=== PATIENT | male | born 2000 | race African-American/Black ===

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

== ENCOUNTER 2021-03-03 21:48 | Emergency (ER) | payer BC ==
[~2021-03-03] VITALS: Ht 175 cm; Wt 64.4 kg
[~2021-03-03 21:48] MED LIST: CETI10TA49 PO; PRED5DRO24 OP
[2021-03-03] MEDS ORDERED: ONDANSETRON 4 MG (ZOFRAN) ORAL DISSOLVE TAB PO STA (21:59)
[2021-03-03] MEDS ORDERED: IBUPROFEN 600 MG (MOTRIN) TAB PO ONE (22:00)
--- NOTE | 2021-03-03 22:05 | ED Cough/URI ---
General Chief Complaint: Cough/Cold/Flu Symptoms Stated Complaint: HEADACHE,BODY ACHES,VOMITTING Source: patient, family Exam Limitations: no limitations History of Present Illness Date Seen by Provider: Mar 03, 2021 Time Seen by Provider: 21:50 Initial Comments 20-year-old male otherwise healthy coming in due to 2 days of body aches, vomiting, cough, and subjective fever. Said he had Covid last semester in school, but has not been vaccinated. Is unsure if he has been around anyone sick. Really started vomiting roughly about an hour ago. No blood or bile in the vomit. Is otherwise denying any other acute complaints. Allergies and Home Medications Allergies Coded Allergies: No Known Drug Allergies (Unverified , 12/31/19) Patient Home Medication List Home Medication List Reviewed: Yes Cetirizine HCl (Zyrtec) 10 Mg Tablet, 10 MG PO DAILY Prescribed by: MEL HAWKINS on 01/04/21 173 Prednisolone Acetate/Pf (Prednisolone Acet 1% Eye Drop) 5 Ml Drops.susp, 5 ML OP BID Prescribed by: MEL HAWKINS on 01/04/21 173 Review of Systems Review of Systems Constitutional: chills, fever EENTM: No blurred vision Respiratory: cough, short of breath Cardiovascular: No chest pain Gastrointestinal: No abdominal pain; nausea, vomiting Genitourinary: no symptoms reported Musculoskeletal: no symptoms reported Skin: no symptoms reported Psychiatric/Neurological: No Symptoms Reported Hematologic/Lymphatic: No Symptoms Reported Immunological/Allergic: no symptoms reported All Other Systems Reviewed Negative Unless Noted: Yes Past Szlrvkr-Sfexkv-Sisyum Hx Patient Social History Tobacco Use?: No Substance use?: No Alcohol Use?: No Immunizations Up To Date First/Initial COVID19 Vaccinat: NA Seasonal Allergies Seasonal Allergies: No Past Medical History Surgeries: No Respiratory: No Cardiac: No Neurological: No Genitourinary: No Gastrointestinal: No Musculoskeletal: No Endocrine: No HEENT: No Cancer: No Psychosocial: No Integumentary: No Blood Disorders: No Physical Exam Vital Signs - First Documented 03/03/21 21:59 Temp 37.3 Pulse 85 Resp 15 B/P (MAP) 153/77 (102) Pulse Ox 98 O2 Delivery Room Air Capillary Refill : Height: '" Weight: lbs. oz. kg; 21.00 BMI Method: General Appearance: WD/WN, no apparent distress Eyes: Bilateral Eye Normal Inspection, Bilateral Eye PERRL HEENT: PERRL/EOMI, normal ENT inspection, pharynx normal Neck: non-tender, full range of motion, supple, normal inspection Respiratory: chest non-tender, lungs clear, normal breath sounds, no respiratory distress, no accessory muscle use Cardiovascular: regular rate, rhythm, no edema, no murmur Gastrointestinal: normal bowel sounds, non tender, soft; No distended, No guarding, No rebound Extremities: normal range of motion, non-tender, normal inspection, no pedal edema, no calf tenderness, normal capillary refill Neurologic/Psychiatric: no motor/sensory deficits, alert, normal mood/affect Skin: normal color, warm/dry Lymphatic: no adenopathy Progress/Results/Core Measures Suspected Sepsis SIRS Temperature: Pulse: Respiratory Rate: Blood Pressure / Mean: Results/Orders Lab Results Laboratory Tests Test 03/03/21 22:05 Range/Units Influenza Type A Antigen NEGATIVE NEGATIVE Influenza Type B Antigen NEGATIVE NEGATIVE My Orders Orders - ART GERONIMO MD Influenza A & B Antigens (03/03/21 21:59) Coronavirus Sars-Cov-2 So 2018 (03/03/21 21:59) Ondansetron Oral Dissolve Tab (Zofran (03/03/21 21:59) Ibuprofen Tablet (Motrin Tablet) (03/03/21 22:00) Medications Given in ED Current Medications Medications Dose Ordered Sig/Pascale Route Start Time Stop Time Status Last Admin Dose Admin Ibuprofen 600 mg ONCE ONCE PO 03/03/21 22:00 03/03/21 22:01 DC 03/03/21 22:07 600 MG Vital Signs/I&O 03/03/21 03/03/21 21:59 22:00 Temp 37.3 Pulse 85 Resp 15 B/P (MAP) 153/77 (102) Pulse Ox 98 O2 Delivery Room Air Room Air Capillary Refill : Progress Note : Progress Note 20-year-old male with above history coming in due to body aches, cough, subjective fever, and vomiting. ABCs were intact and vitals were stable on presentation. Physical exam is reassuring and he has clear lung guzman, breathing comfortably, and the nontender abdomen. All of the symptoms fit a viral flulike syndrome. We will send flu antigen testing as well as Covid testing here. Given Zofran and ibuprofen while in the emergency department. Overall he is well-appearing and tolerating p.o. I believe he is stable for discharge with outpatient follow-up. He was sent home with strict return precautions. Departure Impression Primary Impression: Flu-like symptoms Additional Impression: Person under investigation for COVID-19 Disposition: HOME, SELF-CARE Condition: Stable Departure-Patient Inst. Decision time for Depature: 22:34 Referrals: NO,LOCAL PHYSICIAN (PCP/Family) Primary Care Physician Patient Instructions: Viral Syndrome (DC) Add. Discharge Instructions: You were seen in the emergency department for body aches, cough, and vomiting. Your flu test fortunately is negative. Your Covid test is pending and should be back within the next 24 hours roughly. 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 Be sure to drink small sips of fluids frequently to keep up. Take ibuprofen or Tylenol for fever or pain. Do not go to school until you have been fever free for at least 24 hours. Scripts Ondansetron (Ondansetron Odt) 4 Mg Tab.rapdis 4 MG PO Q6H PRN for NAUSEA/VOMITING for 5 Days, #20 TAB Prov: ART GERONIMO MD 03/03/21 Work/School Note: School/Childcare Release Date Seen in the Emergency Department: Mar 03, 2021 Time Dismissed from Emergency Department: 22:37 Return to School: Mar 08, 2021 Restrictions: Return-No Fever (24hrs), Return-No Vomiting(24hrs) ART GERONIMO MD Mar 03, 2021 22:05
[2021-03-03] MEDS ORDERED: ONDA4TAB11 PO (22:35)
[2021-03-03 22:40] VITALS: BP 153/77
== END 2021-03-03 22:40 | disposition home or self-care (01) ==
LOC: EDUNIT# 21:48 → ER FS 21:49
DX: J11.1 Influenza due to unidentified influenza virus with other respiratory manifestations (principal); Z20.822 Contact with and (suspected) exposure to COVID-19; Z79.52 Long term (current) use of systemic steroids
CPT/HCPCS: 87635; 87636; 87804; 99283